=== PATIENT | male | born 1945 | race Caucasian/White ===

== ENCOUNTER → 2023-04-20 | Day surgery (SDC) | payer MEDICARE ==
[~2023-04-20] MED LIST: Sodium Chloride 0.9% 10 ML Syringe FLUSH ONE
== END ==
LOC: JP.SDS 09:19
PROVIDERS: ATTEND Ophthalmology
DX: H26.9 Unspecified cataract (principal); I10 Essential (primary) hypertension; E11.9 Type 2 diabetes mellitus without complications; E66.9 Obesity, unspecified; Z68.30 Body mass index [BMI] 30.0-30.9, adult

== ENCOUNTER 2023-05-04 08:01 | Day surgery (SDC) | payer MEDICARE ==
[~2023-05-04 08:01] MED LIST changes: -Sodium Chloride 0.9% 10 ML Syringe FLUSH ONE; +Sodium Chloride 0.9% 10 ML Syringe FLUSH PRN
== END 2023-05-04 08:58 | disposition home or self-care (01) ==
LOC: JP.SDS 08:01
PROVIDERS: ATTEND Ophthalmology
DX: H26.9 Unspecified cataract (principal); Z79.899 Other long term (current) drug therapy
CPT/HCPCS: 66984; J3490

== ENCOUNTER 2024-09-26 12:56 | Emergency (ER) | payer MEDICARE ==
[2024-09-26] MEDS: Sodium Chloride 0.9% 500 ML IV ONE (15:08)
[2024-09-26 15:17] LABS: HEMATOCRIT 30.1 % (38.4-49.7); HEMOGLOBIN 10.3 g/dL (12.9-16.9); MEAN CORPUSCULAR HEMOGLOBIN 29.3 pg (31.6-35.5); MEAN CORPUSCULAR HGB CONC 34.2 g/dL (31.6-35.5); MEAN CORPUSCULAR VOLUME 85.5 fL (81.4-99.0); PLATELET COUNT,PLT 215 K/uL (130-375); RED BLOOD CELL COUNT 3.52 M/uL (4.14-5.76); WHITE BLOOD CELL COUNT,WBC 17.3 K/uL (3.2-11.0)
[2024-09-26 15:38] LABS: BAND ABSOLUTE MAN 2.77 K/uL; BAND PERCENT MAN 16 % (5-11); LYMPHOCYTES ABSOLUTE MAN 0.52 K/uL (0.8-3.3); LYMPHOCYTES PERCENT MAN 3 % (24-44); METAMYELOCYTE ABSOLUTE MAN 0.35 K/uL; METAMYELOCYTE PERCENT MAN 2 %; MONOCYTES ABSOLUTE MAN 1.21 K/uL (0.20-0.90); MONOCYTES PERCENT MAN 7 % (2-6); MYELOCYTE ABSOLUTE MAN 0.17; MYELOCYTE PERCENT MAN 1 %; NEUTROPHILS ABSOLUTE MAN 12.28 K/uL (1.0-7.6); SEG NEUTROPHILS PERCENT MAN 71 % (36-66)
[2024-09-26] MEDS: LORazepam 2 MG/ML SDV IVPUSH PRN (15:45)
[2024-09-26 15:46] LABS: A/G RATIO 0.6 (1.2-2.2); ALANINE AMINOTRANSFERASE,ALT 24 U/L (12-78); ALBUMIN 2.5 g/dL (3.4-5.0); ALKALINE PHOSPHATASE 88 U/L (46-116); ASPARTATE AMNIOTRANSFERASE,AST 31 U/L (15-37); BILIRUBIN TOTAL 0.5 mg/dL (0.2-1.0); CALCIUM 9.6 mg/dL (8.5-10.1); CARBON DIOXIDE,CO2 19 mmol/L (21-32); CHLORIDE,CL 101 mmol/L (100-108); EST CRCL DRUG DOSING (CG) 8.49 mL/min; ESTIMATED GFR 8 mL/min (>60); GLUCOSE RANDOM 214 mg/dL (74-106); PRO B-TYPE NATRIUR PEPT,BNPPRO 11761 pg/mL (5-450); PROTEIN TOTAL,TP 6.6 g/dL (6.4-8.2); SODIUM,NA 133 mmol/L (140-148)
[2024-09-26 15:49] LABS: ANION GAP 19.2 mmol/L (5.0-14.0); BLOOD UREA NITROGEN,BUN 79 mg/dL (7-18); CREATININE 6.6 mg/dL (0.8-1.3); POTASSIUM,K 6.2 mmol/L (3.6-5.2)
[2024-09-26 15:56] LABS: CORONAVIRUS COVID-19 NAA NEGATIVE (NEGATIVE); INFLUENZA A NAA NEGATIVE (NEGATIVE); INFLUENZA B NAA NEGATIVE (NEGATIVE); RESPIRATORY SYNCYTIAL VIR NAA NEGATIVE (NEGATIVE)
[2024-09-26] MEDS: Sodium Bicarbonate 8.4% 50 MEQ/50 ML Syringe IVPUSH ONE (16:20)
[2024-09-26] MEDS: Heparin Sodium 5,000 Units/ML Vial IVPUSH ONE (16:22)
[2024-09-26] MEDS: Aspirin 81 MG Tab.Chew PO ONE (16:23)
[2024-09-26] MEDS: Etomidate 2 MG/ML 10 ML SDV IVPUSH ONE (16:35)
[2024-09-26] MEDS: Succinylcholine 200 MG/10 ML MDV IV ONE (16:35)
[2024-09-26] MEDS: cefTRIAXone 1 GM in Sodium Chloride 0.9% 50 ML IV ONE (16:43)
[2024-09-26] MEDS: propofoL 100 ML IV SCH (16:45)
[2024-09-26] MEDS: Rocuronium 50 MG/5 ML Vial IVPUSH ONE (16:49)
[2024-09-26] MEDS: propofoL 100 ML ONE (16:59)
[2024-09-26] MEDS: Succinylcholine 200 MG/10 ML MDV ONE (17:33)
[2024-09-26] MEDS: Rocuronium 50 MG/5 ML Vial ONE (17:55)
== END 2024-09-26 17:45 | disposition critical access hospital (66) ==
LOC: JP.ED 12:56
DX: A41.9 Sepsis, unspecified organism (principal); R65.20 Severe sepsis without septic shock; J96.00 Acute respiratory failure, unspecified whether with hypoxia or hypercapnia; E87.5 Hyperkalemia; N28.9 Disorder of kidney and ureter, unspecified; I10 Essential (primary) hypertension; E78.00 Pure hypercholesterolemia, unspecified; E11.9 Type 2 diabetes mellitus without complications; Z79.82 Long term (current) use of aspirin; Z79.84 Long term (current) use of oral hypoglycemic drugs; Z79.899 Other long term (current) drug therapy
CPT/HCPCS: 0241U; 36415; 71045; 71045-26; 80053; 80307; 83605; 83735; 83880; 84145; 84484; 85025; 87040; 87077; 87186; 93005; 93010; 96361; 96365; 96367; 96375; 99285; 99285-25; J0330; J0696; J1644; J2060; J2704; J3490; J7030

== ENCOUNTER 2024-10-08 08:10 | Emergency (ER) | payer MEDICARE | END 2024-10-08 09:26 | disposition home or self-care (01) | LOC: JP.ED 08:10 | DX: R33.9 Retention of urine, unspecified (principal); I10 Essential (primary) hypertension; E78.00 Pure hypercholesterolemia, unspecified; E11.9 Type 2 diabetes mellitus without complications; Z87.891 Personal history of nicotine dependence; Z79.82 Long term (current) use of aspirin; Z79.84 Long term (current) use of oral hypoglycemic drugs; Z79.899 Other long term (current) drug therapy | CPT/HCPCS: 99284 ==